=== PATIENT | male | born 1955 | race Caucasian/White ===

== ENCOUNTER 2022-10-01 09:10 | Emergency (ER) | payer MEDICAID ==
[~2022-10-01] VITALS: Ht 177.8 cm; Wt 81.0 kg
[2022-10-01 09:16] VITALS: PULSE 90; O2SAT 98
[2022-10-01 10:45] VITALS: BP 148/86; RESP 20; TEMP 98.3
[2022-10-01] MEDS ORDERED: ACETAMINOPHEN 325MG TABLET PO ONE (10:45)
[2022-10-01] MEDS ORDERED: LIDOCAINE 5% PATCH TOP SCH (10:45)
[2022-10-01] MEDS ORDERED: BACL20TA MT (11:55)
== END 2022-10-01 12:42 | disposition home or self-care (01) ==
LOC: ER 09:10
DX: M54.50 Low back pain, unspecified (principal); I10 Essential (primary) hypertension
CPT/HCPCS: 72070; 72100; 99284